=== PATIENT | male | born 1950 | race Caucasian/White ===

== ENCOUNTER 2021-10-28 13:51 | Emergency (ER) | payer OTHER, SELFPAY ==
--- NOTE | ~2021-10-28 | CT_ITS ---
EXAMINATION: CT abdomen pelvis w con DATE: 10/28/2021 15:20 INDICATION: Periumbilical abdominal pain TECHNIQUE: Computed tomography (CT) of the abdomen and pelvis was performed with 100 CC Omnipaque 350 intravenous contrast. Automated exposure control and iterative reconstruction technique were employe d. Exam dose: 1159.08 mGy-cm total exam DLP. COMPARISON: None. FINDINGS: The lung bases are clear of infiltrate or consolidation. Normal heart size. No pericardial or pleural effusion. The liver, gallbladder, bile the, pancreas, pancreatic duct and spleen are unremarkable. Normal morphology of the adrenal glands. Several left renal cysts are noted, 2 of which are quite small and the largest approximately 1.3 cm, at the medial inferior aspect of the kidney. One or 2 very small right renal cysts. No urinary tract calculus or hydroureteronephrosis. There is moderately prominent diffuse thickening of the urinary bladder wall, which may be due to und erdistention and/or moderate prostatomegaly, possibly due to adjacent inflammation adjacent to the ne arby sigmoid colon.. Normal caliber of the abdominal aorta. No intraperitoneal or retroperitoneal or pelvic mass lesion or adenopathy or ascites. No evidence of appendicitis. There are multiple sigmoid colon diverticula and scattered diverticula of the descending and transver se colon. There is mild pericolic fat stranding in the sigmoid region and some nonspecific thickening of the sigmoid colon wall, in addition to some adjacent fascial thickening. Findings may be due to m ild sigmoid diverticulitis. No abscess is identified. No bowel obstruction or intraperitoneal free air.. Small fat-containing left inguinal hernia. Diffuse idiopathic skeletal hyperostosis of the lower thoracic spine. Mild degenerative disc disease of the lumbar spine. No suspicious osteolytic or osteoblastic lesions are noted. IMPRESSION: Pericolic fat stranding and fascial thickening in the sigmoid region, which may be due t o mild uncomplicated sigmoid diverticulitis, without abscess Bilateral renal cysts Reviewed, dictated and finalized at [facility]. Reviewed, dictated and finalized at [facility]. IMPRESSION: Pericolic fat stranding and fascial thickening in the sigmoid moon on, which may be due to mild uncomplicated sigmoid diverticulitis, without absc ess Bilateral renal cysts
[2021-10-28 13:59] VITALS: BP 112/68; PULSE 93; RESP 16; O2SAT 98
[2021-10-28 14:13] VITALS: BP 112/68; PULSE 93; RESP 16; O2SAT 98
[2021-10-28 14:31] LABS: Hemoglobin 15.2 g/dL (14.0-18.0); Mean Corpuscular HGB Conc 34.5 g/dl (32-36); Mean Corpuscular Hemoglobin 30.9 pg (26-34); Mean Corpuscular Volume 89.4 fl (80-100); Platelet Count Result 246 k/mm3 (150-375); Red Blood Count 4.92 M/mm3 (4.6-6.20); Red Cell Distribution Width 13.2 % (11.5-14.5); White Blood Count 9.3 K/mm3 (4.5-10.0)
[2021-10-28 14:42] LABS: Alanine Aminotransferase 56 U/L (6-50); Albumin Level 4.7 g/dL (3.5-5.1); Alkaline Phosphatase 58 U/L (38-126); Anion Gap 10 mmol/L (8-16); Aspartate Amino Transferase 46 U/L (17-59); Bilirubin,Total 0.8 mg/dL (0.2-1.3); Blood Urea Nitrogen 29 mg/dL (9-20); Calcium 9.5 mg/dL (8.4-10.2); Carbon Dioxide 28 mmol/L (22-30); Chloride 92 mmol/L (98-107); Estimated CRCL calculation 55 ml/min; Estimated Glomerular Filt Rate 55; Glucose 115 mg/dL (65-110); Lactic Acid Reflex 1.4 mmol/L (0.7-2.0); Lipase 49 U/L (23-300); Potassium 3.3 mmol/L (3.4-5.0); Sodium 130 mmol/L (137-145)
[2021-10-28 14:46] LABS: Appearance Urine Clear (Clear); Bilirubin Urine 2+ (Negative); Blood Urine Trace-lysed (Negative); Color Urine Yellow (Yellow); Glucose Urine UA Negative (Negative); Ketones Urine Trace mg/dL (Negative); Leukocyte Esterase Ur Negative LEU/UL (Negative); Nitrate Urine Negative (Negative); Protein Urine 1+ mg/dL (Negative); Specific Grav Ur >= 1.030 (1.001-1.035); Urobilinogen Urine 0.2 mg/dL (<2.0); pH Urine 5.5 (5.0-9.0)
[2021-10-28 14:50] LABS: Band Neutrophils Percent 19 % (0-6); Lymphocytes Absolute Manual 0.83 K/mm3 (1.1-4.5); Monocytes Absolute Manual 1.39 K/mm3 (0.1-0.90); Monocytes Percent Manual 15 % (3-9); Neutrophils Absolute Manual 7.06 K/mm3 (1.3-6.7); Neutrophils Percent Manual 57 % (46-73); Platelet Estimate Adequate (Adequate); Total Cells Counted 100
[2021-10-28 15:12] LABS: Bacteria Urine Trace /hpf; Mucus Urine Heavy /lpf; RBC Urine 0-2 /hpf (0-2); Squamous Epithelial Cell Urine Occasional /hpf (Few); WBC Urine 0-3 /hpf
[2021-10-28 15:29] LABS: Add Urine Microscopic? YES
[2021-10-28 15:33] VITALS: BP 115/76; PULSE 86; RESP 18; O2SAT 95
[2021-10-28] MEDS: SODIUM CHLORIDE 0.9% IV 2,000 ML 999 ML IV CONT (15:33)
[2021-10-28 16:51] VITALS: BP 117/69; PULSE 87; RESP 18; O2SAT 99
[2021-10-28] MEDS: POTASSIUM CHLORIDE 20 MEQ TABLET 40 MEQ PO (16:51)
--- NOTE | 2021-10-28 20:46 | ED.GENADULT ---
HPI - General Adult General Chief complaint: Abdominal Pain Stated complaint: abd pain, diverticulitis Time Seen by Provider: 10/28/21 14:29 History of Present Illness HPI narrative: This is a 62-year-old male with history of diverticulosis present in the ED with 5 days of abdominal pain. Describes the pain as radiographs the lower part of his abdomen, stabbing in nature, 5/10 intensity comes and goes. Says that this feels like when he had diverticulitis 6 years ago. He has taken oxy at home with some relief. Patient is known to see a change in his stool patterns. No blood in stool but significant mucus. She has also had decreased oral intake. Denies chest pain, SOB, or urinary symptoms. Patient saw his primary care physician 2 days ago and was prescribed a course of Cipro which he has been taking. Related Data Home Medications Medication Instructions Recorded Confirmed allopurinol 300 mg tablet 300 mg PO DAILY 10/28/21 10/28/21 ciprofloxacin HCl 500 mg tablet 500 mg PO Q12H 10/28/21 10/28/21 (Cipro) lisinopril 20 1 tablet PO DAILY 10/28/21 10/28/21 mg-hydrochlorothiazide 25 mg tablet metronidazole 250 mg tablet 250 mg PO QID 10/28/21 10/28/21 simvastatin 20 mg tablet 20 mg PO HS 10/28/21 10/28/21 upadacitinib 15 mg tablet,extended 15 mg PO DAILY 10/28/21 10/28/21 release 24 hr (Rinvoq) Allergies Allergy/AdvReac Type Severity Reaction Status Date / Time No Known Allergies Allergy Verified 10/28/21 13:59 Review of Systems Review of Systems: CONSTITUTIONAL: Denies night sweats. EYES: No eye pain ENT: Denies rhinorrhea CARDIOVASCULAR: Denies palpitations RESPIRATORY: Denies hemoptysis GASTROINTESTINAL: Denies hematemesis GENITOURINARY: Denies hematuria. SKIN: Denies rash MUSCULOSKELETAL: Denies myalgia. NEUROLOGIC: Denies weakness. PSYCHIATRIC: Denies delusions PMFSH Past Medical History Medical History Diverticulitis Hyperlipidemia Hypertension Psoriasis Surgical History Surgical History H/O hernia repair Social History Social History Social History: patient endorses occasional alcohol use, denies tobacco or drug use. Exam Narrative: APPEARANCE: No apparent distress. Head atraumatic. EYES: PERRLA/EOMI, NOSE: Normal no drainage NECK: Supple, Trachea midline RESPIRATORY: CTAB, No increased work of breathing. CARDIOVASCULAR: S1S2 appreciated ABDOMINAL: Tenderness palpation in the left lower quadrant. The rest the abdomen is soft, nontender with no guarding or rebound. MUSCULOSKELETAl: No obvious deformities NEURO: Alert. Moving 4/4 extremities SKIN:: Warm, dry. Normal color PSYCHIATRIC: Normal affect Course Vital Signs Vital signs: Vital Signs Pulse Rate 93 10/28/21 13:59 Respiratory Rate 16 10/28/21 13:59 Blood Pressure 112/68 10/28/21 13:59 Pulse Oximetry 98 10/28/21 13:59 Pulse Rate 87 10/28/21 16:51 Respiratory Rate 18 10/28/21 16:51 Blood Pressure 117/69 10/28/21 16:51 Pulse Oximetry 99 10/28/21 16:51 Medical Decision Making MDM Narrative Medical decision making narrative: Patient presents to ED with left lower quadrant abdominal pain. CT revealed mild diverticulitis without evidence of abscess or perforation. The patient is on immunomodulators for his psoriasis which makes him higher risk. I discussed the option of inpatient admission versus a trial of outpatient therapy with the patient and his . They understand the risks of outpatient therapy. They are comfortable attempting outpatient treatment and promised to return if her condition is to worsen. Patient will be discharged home to continue taking its course of Cipro that was prescribed by his primary care physician. He has been instructed to follow up with him in the next 3-5 days. He should return em
== END 2021-10-28 17:57 | disposition home or self-care (01) ==
PROVIDERS: Emergency Medicine; Emergency Provider Emergency Medicine; PCP Internal Medicine Endocrinology, Diabetes & Metabolism
DX: K57.92 Diverticulitis of intestine, part unspecified, without perforation or abscess without bleeding (principal); I10 Essential (primary) hypertension; E78.5 Hyperlipidemia, unspecified
CPT/HCPCS: 36415; 74177; 80053; 81001; 83605; 83690; 85025; 96360; 96361; 99284; A9270; J7030; Q9967